=== PATIENT | female | born 1975 | race African-American/Black ===

== ENCOUNTER 2016-08-11 11:33 | Emergency (ER) | payer MEDICAID ==
[2016-08-11] MEDS ORDERED: Dicyclomine 10 MG Cap PO ONE (11:48)
--- NOTE | 2016-08-11 11:52 | EDM.PDOC ---
<Carmen Alvarado - Last Filed: 08/11/16 12:05> ED HPI GI/ABDOMINAL - General Chief Complaint: Gastrointestinal Problem Stated Complaint: UNK Time Seen by Provider: 08/11/16 11:35 - History of Present Illness INITIAL COMMENTS - FREE TEXT/NARRATIVE: History of present illness: [41-year-old female acute onset of diarrhea which started this morning with lightheadeness and dizziness. She has not noticed blood in her stools. She denies fever nausea vomiting abdominal pain, cough, sorethroat, earache, or other pertinent symptoms. Her son has similar symptoms She has a history of seizures that she takes Tegretol. A seizure was 9 years ago.] Review of systems: As per history of present illness and below otherwise all systems reviewed and negative. Past medical history: As per history of present illness and as reviewed below otherwise noncontributory. Surgical history: As per history of present illness and as reviewed below otherwise noncontributory. Social history: No reported history of drug or alcohol abuse. Family history: As per history of present illness and as reviewed below otherwise noncontributory. Physical exam: General: Well developed, well nourished in NAD HEENT: Atraumatic, normocephalic, pupils reactive, negative for conjunctival pallor or scleral icterus, mucous membranes moist, throat clear, neck supple, nontender, trachea midline. Lungs: Clear to auscultation, breath sounds equal bilaterally, chest nontender. Heart: S1S2, regular, negative for clicks, rubs, or JVD. Abdomen: Soft, nondistended, nontender. Hyperactive bowel sounds. Negative for masses or hepatosplenomegaly. Negative for costovertebral tenderness. Pelvis: Stable nontender. Genitourinary: Deferred. Rectal: Deferred. Extremities: Atraumatic, negative for cords or calf pain. Neurovascular unremarkable. Neuro: Awake, alert, oriented. Cranial nerves II through XII unremarkable. Cerebellum unremarkable. Motor and sensory unremarkable throughout. Exam nonfocal. Diagnostics: [CBC, CMP, UA, urine test] Therapeutics: [Bentyl by mouth x1] Impression: [Viral gastroenteritis] Plan: [Increase hydration] Definitive disposition and diagnosis as appropriate pending reevaluation and review of above. - Related Data Allergies/ADRs: Allergies Allergy/AdvReac Type Severity Reaction Status Date / Time No Known Allergies Allergy Verified 08/11/16 11:55 Home Meds: Home Meds carBAMazepine [Carbamazepine] 500 mg PO DAILY 08/11/16 [History] ED ROS GENERAL - Review of Systems Review Of Systems: See Below (History of present illness) ED EXAM, GI/ABD - Physical Exam Exam: See Below (History of present illness) Course - Vital Signs Last Recorded V/S: Last Vital Signs Temp 36.7 C 08/11/16 11:51 Pulse 95 08/11/16 11:51 Resp 18 08/11/16 11:51 BP 112/73 08/11/16 11:51 Pulse Ox 98 08/11/16 11:51 Orthostatic Blood Pressure [ 100/69 Standing] Orthostatic Blood Pressure [ 108/74 Sitting] Orthostatic Blood Pressure [ 117/70 Supine] - Orders/Labs/Meds Orders: Active Orders 24 hr Category Date Time Status Orthostatic Vital Signs [RC] ASDIRECTED Care 08/11/16 11:52 Active Labs: Laboratory Tests 08/11/16 08/11/16 08/11/16 Range/Units 11:20 11:20 12:25 WBC 6.19 (4.0-11.0) K/uL RBC 5.23 (4.30-5.90) M/uL Hgb 15.3 (12.0-16.0) g/dL Hct 46.0 (36.0-46.0) % MCV 88.0 (80.0-98.0) fL MCH 29.3 (27.0-32.0) pg MCHC 33.3 (31.0-37.0) g/dL RDW Std Deviation 41.0 (28.0-62.0) fl RDW Coeff of Keron 13 (11.0-15.0) % Plt Count 215 (150-400) K/uL MPV 10.80 (7.40-12.00) fL Neut % (Auto) 83.8 H (48.0-80.0) % Lymph % (Auto) 8.6 L (16.0-40.0) % [place] % (Auto) 7.3 (0.0-15.0) % Eos % (Auto) 0.3 (0.0-7.0) % Baso % (Auto) 0.0 (0.0-1.5) % Neut # 5.2 (1.4-5.7) K/uL Lymph # 0.5 L (0.6-2.4) K/uL [place] # 0.5 (0.0-0.8) K/uL Eos # 0.0 (0.0-0.7) K/uL Baso # 0.0 (0.0-0.1) K/uL Nucleated RBC % 0.0 /100WBC Nucleated RBCs # 0 K/uL Sodium 142 (136-146) mmol/L Potassium 3.5 (3.5-5.1) mmol/L Chloride 110 (98-110) mmol/L Carbon Dioxide 24 (21-31) mmol/L BUN 12 (6.0-23.0) mg/dL Creatinine 0.9 (0.6-1.5) mg/dL Est Cr Clr Drug Dosing 83.82 mL/min Estimated GFR (MDRD) > 60.0 ml/min Glucose 85 (60-110) mg/dL Calcium 10.1 (8.8-10.8) mg/dL Total Bilirubin 0.5 (0.1-1.5) mg/dL AST 21 (5-40) IU/L ALT 29 (8-54) IU/L Alkaline Phosphatase 63 (40-150) Total Protein 8.0 (6.0-8.0) g/dL Albumin 4.3 (3.5-5.0) g/dL Globulin 3.7 H (2.0-3.5) g/dL Albumin/Globulin Ratio 1.2 L (1.3-2.8) Urine Color Urine Appearance Urine pH (5.0-8.0) Ur Specific [place] (1.001-1.035) Urine Protein (NEGATIVE) mg/dL Urine Glucose (UA) (NEGATIVE) mg/dL Urine Ketones (NEGATIVE) mg/dL Urine Occult Blood (NEGATIVE) Urine Nitrite (NEGATIVE) Urine Bilirubin (NEGATIVE) Urine Urobilinogen (<2.0) EU/dL Ur Leukocyte Esterase (NEGATIVE) Urine RBC (0-2/HPF) Urine WBC (0-5/HPF) Ur Epithelial Cells (NONE-FEW) Urine Bacteria (NEGATIVE) Urine HCG, Qual NEGATIVE (NEGATIVE) 08/11/16 Range/Units 12:25 WBC (4.0-11.0) K/uL RBC (4.30-5.90) M/uL Hgb (12.0-16.0) g/dL Hct (36.0-46.0) % MCV (80.0-98.0) fL MCH (27.0-32.0) pg MCHC (31.0-37.0) g/dL RDW Std Deviation (28.0-62.0) fl RDW Coeff of Keron (11.0-15.0) % Plt Count (150-400) K/uL MPV (7.40-12.00) fL Neut % (Auto) (48.0-80.0) % Lymph % (Auto) (16.0-40.0) % [place] % (Auto) (0.0-15.0) % Eos % (Auto) (0.0-7.0) % Baso % (Auto) (0.0-1.5) % Neut # (1.4-5.7) K/uL Lymph # (0.6-2.4) K/uL [place] # (0.0-0.8) K/uL Eos # (0.0-0.7) K/uL Baso # (0.0-0.1) K/uL Nucleated RBC % /100WBC Nucleated RBCs # K/uL Sodium (136-146) mmol/L Potassium (3.5-5.1) mmol/L Chloride (98-110) mmol/L Carbon Dioxide (21-31) mmol/L BUN (6.0-23.0) mg/dL Creatinine (0.6-1.5) mg/dL Est Cr Clr Drug Dosing mL/min Estimated GFR (MDRD) ml/min Glucose (60-110) mg/dL Calcium (8.8-10.8) mg/dL Total Bilirubin (0.1-1.5) mg/dL AST (5-40) IU/L ALT (8-54) IU/L Alkaline Phosphatase (40-150) Total Protein (6.0-8.0) g/dL Albumin (3.5-5.0) g/dL Globulin (2.0-3.5) g/dL Albumin/Globulin Ratio (1.3-2.8) Urine Color DARK YELLOW Urine Appearance CLEAR Urine pH 5.5 (5.0-8.0) Ur Specific [place] >= 1.030 (1.001-1.035) Urine Protein NEGATIVE (NEGATIVE) mg/dL Urine Glucose (UA) NEGATIVE (NEGATIVE) mg/dL Urine Ketones TRACE H (NEGATIVE) mg/dL Urine Occult Blood NEGATIVE (NEGATIVE) Urine Nitrite NEGATIVE (NEGATIVE) Urine Bilirubin NEGATIVE (NEGATIVE) Urine Urobilinogen 0.2 (<2.0) EU/dL Ur Leukocyte Esterase NEGATIVE (NEGATIVE) Urine RBC NONE SEEN (0-2/HPF) Urine WBC 0-1 (0-5/HPF) Ur Epithelial Cells RARE (NONE-FEW) Urine Bacteria RARE (NEGATIVE) Urine HCG, Qual (NEGATIVE) Meds: Medications Discontinued Medications Generic Name Dose Route Start Last Admin Trade Name Freq PRN Reason Stop Dose Admin Dicyclomine HCl 10 mg 08/11/16 11:48 08/11/16 11:57 Bentyl PO 08/11/16 11:49 10 mg ONETIME ONE Administration Sodium Chloride 1,000 mls @ 999 mls/hr 08/11/16 12:04 08/11/16 12:23 Normal Saline IV 08/11/16 13:04 999 mls/hr STAT ONE Administration Departure - Departure Disposition: Home, Self-Care 01 Clinical Impression: Diarrhea Referrals: PCP,None [Primary Care Provider] - Forms: ED Department Discharge Additional Instructions: The following information is given to patients seen in the emergency department who are being discharged to home. This information is to outline your options for follow-up care. We provide all patients seen in our emergency department with a follow-up referral. The need for follow-up, as well as the timing and circumstances, are variable depending upon the specifics of your emergency department visit. If you don't have a primary care physician on staff, we will provide you with a referral. We always advise you to contact your personal physician following an emergency department visit to inform them of the circumstance of the visit and for follow-up with them and/or the need for any referrals to a consulting specialist. The emergency department will also refer you to a specialist when appropriate. This referral assures that you have the opportunity for follow-up care with a specialist. All of these measure are taken in an effort to provide you with optimal care, which includes your follow-up. Under all circumstances we always encourage you to contact your private physician who remains a resource for coordinating your care. When calling for follow-up care, please make the office aware that this follow-up is from your recent emergency room visit. If for any reason you are refused follow-up, please contact the [facility] Emergency Department at and asked to speak to the emergency department charge nurse. [facility] Primary care- Internal Medicine and Family [address] [address] Push hydration use [id number] antidiarrheals like Imodium or probiotics and please call and followup with your primary care physician. Return to ER as needed and as discussed <Aurea Whitaker - Last Filed: 08/11/16 13:42> ED HPI GI/ABDOMINAL - History of Present Illness INITIAL COMMENTS - FREE TEXT/NARRATIVE: This is Dr. Whitaker dictating an addendum note as a supervising physician on this case Agree with history and physical as above and the patient just started her symptoms this morning but says that she feels very lightheaded and feels generalized weakness. She has not had any vomiting. She is ambulatory in the ED without distress and her orthostatic vitals are negative but she felt symptomatic with them. With that being said we will go ahead and do CBC CMP UA and UCG and give her IV fluids. Patient is aware of all testing results and care plan for home with pushing hydration and [id number] antidiarrheals. Depression: Diarrhea Course - Orders/Labs/Meds Labs: Laboratory Tests 08/11/16 08/11/16 08/11/16 Range/Units 11:20 11:20 12:25 WBC 6.19 (4.0-11.0) K/uL RBC 5.23 (4.30-5.90) M/uL Hgb 15.3 (12.0-16.0) g/dL Hct 46.0 (36.0-46.0) % MCV 88.0 (80.0-98.0) fL MCH 29.3 (27.0-32.0) pg MCHC 33.3 (31.0-37.0) g/dL RDW Std Deviation 41.0 (28.0-62.0) fl RDW Coeff of Keron 13 (11.0-15.0) % Plt Count 215 (150-400) K/uL MPV 10.80 (7.40-12.00) fL Neut % (Auto) 83.8 H (48.0-80.0) % Lymph % (Auto) 8.6 L (16.0-40.0) % [place] % (Auto) 7.3 (0.0-15.0) % Eos % (Auto) 0.3 (0.0-7.0) % Baso % (Auto) 0.0 (0.0-1.5) % Neut # 5.2 (1.4-5.7) K/uL Lymph # 0.5 L (0.6-2.4) K/uL [place] # 0.5 (0.0-0.8) K/uL Eos # 0.0 (0.0-0.7) K/uL Baso # 0.0 (0.0-0.1) K/uL Nucleated RBC % 0.0 /100WBC Nucleated RBCs # 0 K/uL Sodium 142 (136-146) mmol/L Potassium 3.5 (3.5-5.1) mmol/L Chloride 110 (98-110) mmol/L Carbon Dioxide 24 (21-31) mmol/L BUN 12 (6.0-23.0) mg/dL Creatinine 0.9 (0.6-1.5) mg/dL Est Cr Clr Drug Dosing 83.82 mL/min Estimated GFR (MDRD) > 60.0 ml/min Glucose 85 (60-110) mg/dL Calcium 10.1 (8.8-10.8) mg/dL Total Bilirubin 0.5 (0.1-1.5) mg/dL AST 21 (5-40) IU/L ALT 29 (8-54) IU/L Alkaline Phosphatase 63 (40-150) Total Protein 8.0 (6.0-8.0) g/dL Albumin 4.3 (3.5-5.0) g/dL Globulin 3.7 H (2.0-3.5) g/dL Albumin/Globulin Ratio 1.2 L (1.3-2.8) Urine Color Urine Appearance Urine pH (5.0-8.0) Ur Specific [place] (1.001-1.035) Urine Protein (NEGATIVE) mg/dL Urine Glucose (UA) (NEGATIVE) mg/dL Urine Ketones (NEGATIVE) mg/dL Urine Occult Blood (NEGATIVE) Urine Nitrite (NEGATIVE) Urine Bilirubin (NEGATIVE) Urine Urobilinogen (<2.0) EU/dL Ur Leukocyte Esterase (NEGATIVE) Urine RBC (0-2/HPF) Urine WBC (0-5/HPF) Ur Epithelial Cells (NONE-FEW) Urine Bacteria (NEGATIVE) Urine HCG, Qual NEGATIVE (NEGATIVE) 08/11/16 Range/Units 12:25 WBC (4.0-11.0) K/uL RBC (4.30-5.90) M/uL Hgb (12.0-16.0) g/dL Hct (36.0-46.0) % MCV (80.0-98.0) fL MCH (27.0-32.0) pg MCHC (31.0-37.0) g/dL RDW Std Deviation (28.0-62.0) fl RDW Coeff of Keron (11.0-15.0) % Plt Count (150-400) K/uL MPV (7.40-12.00) fL Neut % (Auto) (48.0-80.0) % Lymph % (Auto) (16.0-40.0) % [place] % (Auto) (0.0-15.0) % Eos % (Auto) (0.0-7.0) % Baso % (Auto) (0.0-1.5) % Neut # (1.4-5.7) K/uL Lymph # (0.6-2.4) K/uL [place] # (0.0-0.8) K/uL Eos # (0.0-0.7) K/uL Baso # (0.0-0.1) K/uL Nucleated RBC % /100WBC Nucleated RBCs # K/uL Sodium (136-146) mmol/L Potassium (3.5-5.1) mmol/L Chloride (98-110) mmol/L Carbon Dioxide (21-31) mmol/L BUN (6.0-23.0) mg/dL Creatinine (0.6-1.5) mg/dL Est Cr Clr Drug Dosing mL/min Estimated GFR (MDRD) ml/min Glucose (60-110) mg/dL Calcium (8.8-10.8) mg/dL Total Bilirubin (0.1-1.5) mg/dL AST (5-40) IU/L ALT (8-54) IU/L Alkaline Phosphatase (40-150) Total Protein (6.0-8.0) g/dL Albumin (3.5-5.0) g/dL Globulin (2.0-3.5) g/dL Albumin/Globulin Ratio (1.3-2.8) Urine Color DARK YELLOW Urine Appearance CLEAR Urine pH 5.5 (5.0-8.0) Ur Specific [place] >= 1.030 (1.001-1.035) Urine Protein NEGATIVE (NEGATIVE) mg/dL Urine Glucose (UA) NEGATIVE (NEGATIVE) mg/dL Urine Ketones TRACE H (NEGATIVE) mg/dL Urine Occult Blood NEGATIVE (NEGATIVE) Urine Nitrite NEGATIVE (NEGATIVE) Urine Bilirubin NEGATIVE (NEGATIVE) Urine Urobilinogen 0.2 (<2.0) EU/dL Ur Leukocyte Esterase NEGATIVE (NEGATIVE) Urine RBC NONE SEEN (0-2/HPF) Urine WBC 0-1 (0-5/HPF) Ur Epithelial Cells RARE (NONE-FEW) Urine Bacteria RARE (NEGATIVE) Urine HCG, Qual (NEGATIVE) Departure - Departure Time of Disposition: 13:41 Condition: good
[2016-08-11] MEDS ORDERED: Sodium Chloride 0.9% 1,000 ML IV ONE (12:04)
[2016-08-11 13:12] LABS: CHLORIDE,CL 110 mmol/L (98-110); SODIUM,NA 142 mmol/L (136-146)
[2016-08-11 14:29] VITALS: BP 108/72
== END 2016-08-11 14:20 | disposition home or self-care (01) ==
LOC: MW.ED 11:33
DX: A08.4 Viral intestinal infection, unspecified (principal); R19.7 Diarrhea, unspecified
CPT/HCPCS: 36415; 80053; 81001; 81025; 85025; 96360; 99284; A9270; J7040; 99283

== ENCOUNTER 2016-12-03 09:22 | Emergency (ER) | payer MEDICAID ==
--- NOTE | 2016-12-03 09:57 | EDM.PDOC ---
ED HPI GENERAL MEDICAL PROBLEM - General Chief Complaint: Lower Extremity Injury/Pain Stated Complaint: NUMB FEELING IN LEFT FOOT AND TOES Time Seen by Provider: 12/03/16 09:42 - History of Present Illness INITIAL COMMENTS - FREE TEXT/NARRATIVE: HISTORY AND PHYSICAL: History of present illness: The patient is a 41-year-old female who follows at [facility] and presents with a two-week history of numbness to the forefront of her left foot and toes with feelings of discomfort. The patient denies any trauma to the area and says that she feels that from the ball of the foot circumferentially around her foot and toes she feels numbness but it is more intense in her big toe and second toe. She does not have any swelling temperature changes redness or lesions noted. She says it is uncomfortable and tingling and pinprick-like sensation. She denies any back pain bowel or bladder disturbances and has no radiation of the discomfort upper leg nor does anything originate from her back and go down her leg. The patient denies any systemic complaints such as chest pain fever chills nausea vomiting lightheadedness and has no history of diabetes or family history of diabetes. When asked why she did not see her clinic provider at the symptoms have been going on for 2 weeks she told me that she didn't call because every time she tries to make an appointment it takes 2 or 3 weeks to get an appointment. Review of systems: As per history of present illness and below otherwise all systems reviewed and negative. Past medical history: As per history of present illness and as reviewed below otherwise noncontributory. Surgical history: As per history of present illness and as reviewed below otherwise noncontributory. Social history: No reported history of drug or alcohol abuse. Family history: As per history of present illness and as reviewed below otherwise noncontributory. Physical exam: Gen.: Well-developed well-nourished female who vital signs have been noted by me and is nontoxic speaking clearly and easily HEENT: Atraumatic, normocephalic, pupils reactive, negative for conjunctival pallor or scleral icterus, mucous membranes moist, throat clear, neck supple, nontender, trachea midline. Lungs: Clear to auscultation, breath sounds equal bilaterally, chest nontender. Heart: S1S2, regular rate and rhythm no overt murmurs Abdomen: Soft, nondistended, nontender. NABS Pelvis: Stable nontender. Genitourinary: Deferred. Rectal: Deferred. Extremities: Atraumatic, negative for cords or calf pain. Neurovascular unremarkable. No pedal edema or leg asymmetry. At the left foot there is no evidence of any warmth redness swelling appreciated and there is no discrete lesions defects deformities or tenderness noted in the toes or the forefront of the foot. There is no temperature changes and pulses are strong Neuro: Awake, alert, oriented. Cranial nerves II through XII unremarkable. Cerebellum unremarkable. Motor and sensory unremarkable throughout. Exam nonfocal. Diagnostics: Accu-Chek Therapeutics: [] I discussed with the patient that my ability to work up this neurosensory change is very limited in the ED as it does not follow any dermatome and due to the chronic nature of the problem. Her pulses are strong there is no clinical evidence of any trauma or infection and I will check an Accu-Chek and refer her back to her provider in the clinic for outpatient testing is indicated. The patient again denies to me any back pain numbness or tingling originating from her back down her leg and states that the problem is only in her toes and her forefoot. Impression: Paresthesia of left toes subacute etiology unclear Definitive disposition and diagnosis as appropriate pending reevaluation and review of above. left toe Pain Score (Numeric/FACES): 4 - Related Data Allergies Allergy/AdvReac Type Severity Reaction Status Date / Time No Known Allergies Allergy Verified 12/03/16 09:37 Home Meds: Home Meds carBAMazepine [Carbamazepine] 500 mg PO DAILY 08/11/16 [History] Past Medical History - Past Health History Medical/Surgical History: Denies Medical/Surgical History Neurological History: Reports: Seizure - Infectious Disease History Infectious Disease History: Reports: Chicken Pox Social & Family History - Family History Family Medical History: Noncontributory - Tobacco Use Smoking Status *Q: Never Smoker - Recreational Drug Use Recreational Drug Use: No Review of Systems - Review of Systems Review Of Systems: ROS reveals no pertinent complaints other than HPI. ED EXAM, GENERAL - Physical Exam Exam: See Below (See dictation) Course - Vital Signs Last Recorded V/S: Last Vital Signs Temp 36.8 C 12/03/16 09:37 Pulse 83 12/03/16 09:37 Resp 18 12/03/16 09:37 BP 109/65 12/03/16 09:37 Pulse Ox 96 12/03/16 09:37 - Orders/Labs/Meds Orders: Active Orders 24 hr Category Date Time Status Blood Glucose Check, Bedside [RC] ONETIME Care 12/03/16 09:51 Ordered Departure - Departure Time of Disposition: 09:55 Disposition: Home, Self-Care 01 Condition: Good Clinical Impression: Paresthesia of left foot - Discharge Information Forms: ED Department Discharge Additional Instructions: The following information is given to patients seen in the emergency department who are being discharged to home. This information is to outline your options for follow-up care. We provide all patients seen in our emergency department with a follow-up referral. The need for follow-up, as well as the timing and circumstances, are variable depending upon the specifics of your emergency department visit. If you don't have a primary care physician on staff, we will provide you with a referral. We always advise you to contact your personal physician following an emergency department visit to inform them of the circumstance of the visit and for follow-up with them and/or the need for any referrals to a consulting specialist. The emergency department will also refer you to a specialist when appropriate. This referral assures that you have the opportunity for followup care with a specialist. All of these measure are taken in an effort to provide you with optimal care, which includes your followup. Under all circumstances we always encourage you to contact your private physician who remains a resource for coordinating your care. When calling for followup care, please make the office aware that this follow-up is from your recent emergency room visit. If for any reason you are refused follow-up, please contact the [facility] emergency department at and ask to speak to the emergency department charge nurse. [address] [place] [address] Please elevate feet at all times possible and follow-up with your provider at [facility] or one of her associates for further outpatient testing and care. Return to ER as needed and as discussed You have a scheduled appointment at [facility] on Wednesday at 2:15 PM with Adrienne Finnegan. Please keep that appointment. - My Orders Last 24 Hours: My Active Orders 12/03/16 09:51 Blood Glucose Check, Bedside [RC] ONETIME - Assessment/Plan Last 24 Hours: My Active Orders 12/03/16 09:51 Blood Glucose Check, Bedside [RC] ONETIME
[2016-12-03 10:18] VITALS: BP 112/69
== END 2016-12-03 10:14 | disposition home or self-care (01) ==
LOC: MW.ED 09:22
DX: R20.8 Other disturbances of skin sensation (principal); Z79.899 Other long term (current) drug therapy
CPT/HCPCS: 82962; 99282; 99283

== ENCOUNTER 2017-02-21 11:49 | Emergency (ER) | payer MEDICAID ==
--- NOTE | 2017-02-21 12:16 | EDM.PDOC ---
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 The patient states that her last regular period was January 17 and she does have irregular periods so she is not sure and she did 2 home tests one of which was positive and one of which was negative. 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 The patient states that she had some scant spotting 2 days ago and has not had any bleeding since that time and she has not had nausea or vomiting or upper abdominal pain. She has had no other systemic complaints but has had some breast tenderness. She states she is concerned about a and is unsure due to the equivocality of the tests. She has had no gynecologic surgeries. She has no dysuria no frequency and no flank pain. She's been eating and drinking normally Review of systems: As per history of present illness and below otherwise all systems reviewed and negative. Past medical history: As per history of present illness and as reviewed below otherwise noncontributory. Surgical history: As per history of present illness and as reviewed below otherwise noncontributory. Social history: No reported history of drug or alcohol abuse. Family history: As per history of present illness and as reviewed below otherwise noncontributory. Physical exam: Gen.: Well-developed well-nourished female who is nontoxic and moves easily in the ED without distress. HEENT: Atraumatic, normocephalic, negative for conjunctival pallor or scleral icterus, mucous membranes moist, throat clear, neck supple, nontender, trachea midline. Lungs: Clear to auscultation, breath sounds equal bilaterally, chest nontender. Heart: S1S2, regular rate and rhythm no overt murmurs Abdomen: Soft, nondistended, minimal suprapubic tenderness without rebound or guarding, no localization of the tenderness right or left, normoactive bowel sounds. Negative for masses or hepatosplenomegaly. Negative for costovertebral tenderness. Pelvis: Stable nontender. Genitourinary: Deferred. Rectal: Deferred. Extremities: Atraumatic, negative for cords or calf pain. Neurovascular unremarkable. Neuro: Awake, alert, oriented. Cranial nerves II through XII unremarkable. Cerebellum unremarkable. Motor and sensory unremarkable throughout. Exam nonfocal. Diagnostics: CBC CMP serum quantitative hCG UA, urine culture if indicated, ABO Rh, pelvic ultrasound if indicated with a positive hCG Therapeutics: I discussed with the patient the testing results including the quantitative hCG of 414 and the ultrasound indicating a small sac indicating a very early gestation. I have advised close follow-up with a repeat hormone level in 2 days and follow-up in our clinic with Dr. Fajardo one of the providers there. I've advised her on strict pelvic rest and reasons to return to the ED. Impression: Threatened Definitive disposition and diagnosis as appropriate pending reevaluation and review of above. Pelvic Pain Score (Numeric/FACES): 4 - Related Data Allergies Allergy/AdvReac Type Severity Reaction Status Date / Time No Known Allergies Allergy Verified 02/21/17 12:07 Home Meds: Home Meds carBAMazepine [Carbamazepine] 500 mg PO DAILY 08/11/16 [History] Past Medical History - Past Health History Medical/Surgical History: Denies Medical/Surgical History Neurological History: Reports: Seizure - Infectious Disease History Infectious Disease History: Reports: Chicken Pox Social & Family History - Family History Family Medical History: Noncontributory - Tobacco Use Smoking Status *Q: Never Smoker - Recreational Drug Use Recreational Drug Use: No ED ROS GENERAL - Review of Systems Review Of Systems: ROS reveals no pertinent complaints other than HPI. ED EXAM, GENERAL - Physical Exam Exam: See Below (See dictation) Course - Vital Signs Last Recorded V/S: Last Vital Signs Temp 36.6 C 02/21/17 14:07 Pulse 65 02/21/17 14:07 Resp 18 02/21/17 14:07 BP 101/66 02/21/17 14:07 Pulse Ox 97 02/21/17 14:07 - Orders/Labs/Meds Orders: Active Orders 24 hr Category Date Time Status OB 1st Tri Sgl 1st Gest [US] Stat Exams 02/21/17 13:03 Taken Labs: Laboratory Tests 02/21/17 02/21/17 02/21/17 Range/Units 12:17 12:17 12:17 WBC 5.30 (4.0-11.0) K/uL RBC 4.71 (4.30-5.90) M/uL Hgb 14.4 (12.0-16.0) g/dL Hct 41.9 (36.0-46.0) % MCV 89.0 (80.0-98.0) fL MCH 30.6 (27.0-32.0) pg MCHC 34.4 (31.0-37.0) g/dL RDW Std Deviation 41.5 (28.0-62.0) fl RDW Coeff of Keron 13 (11.0-15.0) % Plt Count 200 (150-400) K/uL MPV 10.80 (7.40-12.00) fL Neut % (Auto) 66.1 (48.0-80.0) % Lymph % (Auto) 24.2 (16.0-40.0) % [place] % (Auto) 9.1 (0.0-15.0) % Eos % (Auto) 0.4 (0.0-7.0) % Baso % (Auto) 0.2 (0.0-1.5) % Neut # (Auto) 3.5 (1.4-5.7) K/uL Lymph # (Auto) 1.3 (0.6-2.4) K/uL [place] # (Auto) 0.5 (0.0-0.8) K/uL Eos # (Auto) 0.0 (0.0-0.7) K/uL Baso # (Auto) 0.0 (0.0-0.1) K/uL Nucleated RBC % 0.0 /100WBC Nucleated RBCs # 0 K/uL Sodium 142 (136-146) mmol/L Potassium 3.4 L (3.5-5.1) mmol/L Chloride 111 H (98-110) mmol/L Carbon Dioxide 24 (21-31) mmol/L BUN 11 (6.0-23.0) mg/dL Creatinine 0.9 (0.6-1.5) mg/dL Est Cr Clr Drug Dosing 83.82 mL/min Estimated GFR (MDRD) > 60.0 ml/min Glucose 95 (60-110) mg/dL Calcium 9.9 (8.8-10.8) mg/dL Total Bilirubin 0.4 (0.1-1.5) mg/dL AST 13 (5-40) IU/L ALT 16 (8-54) IU/L Alkaline Phosphatase 67 (40-150) Total Protein 7.2 (6.0-8.0) g/dL Albumin 3.9 (3.5-5.0) g/dL Globulin 3.3 (2.0-3.5) g/dL Albumin/Globulin Ratio 1.2 L (1.3-2.8) HCG, Quant 414.8 mIU/mL Urine Color Urine Appearance Urine pH (5.0-8.0) Ur Specific [place] (1.001-1.035) Urine Protein (NEGATIVE) mg/dL Urine Glucose (UA) (NEGATIVE) mg/dL Urine Ketones (NEGATIVE) mg/dL Urine Occult Blood (NEGATIVE) Urine Nitrite (NEGATIVE) Urine Bilirubin (NEGATIVE) Urine Urobilinogen (<2.0) EU/dL Ur Leukocyte Esterase (NEGATIVE) Urine RBC (0-2/HPF) Urine WBC (0-5/HPF) Ur Epithelial Cells (NONE-FEW) Amorphous Sediment (NEGATIVE) Urine Bacteria (NEGATIVE) Blood Type 02/21/17 02/21/17 Range/Units 12:17 12:20 WBC (4.0-11.0) K/uL RBC (4.30-5.90) M/uL Hgb (12.0-16.0) g/dL Hct (36.0-46.0) % MCV (80.0-98.0) fL MCH (27.0-32.0) pg MCHC (31.0-37.0) g/dL RDW Std Deviation (28.0-62.0) fl RDW Coeff of Keron (11.0-15.0) % Plt Count (150-400) K/uL MPV (7.40-12.00) fL Neut % (Auto) (48.0-80.0) % Lymph % (Auto) (16.0-40.0) % [place] % (Auto) (0.0-15.0) % Eos % (Auto) (0.0-7.0) % Baso % (Auto) (0.0-1.5) % Neut # (Auto) (1.4-5.7) K/uL Lymph # (Auto) (0.6-2.4) K/uL [place] # (Auto) (0.0-0.8) K/uL Eos # (Auto) (0.0-0.7) K/uL Baso # (Auto) (0.0-0.1) K/uL Nucleated RBC % /100WBC Nucleated RBCs # K/uL Sodium (136-146) mmol/L Potassium (3.5-5.1) mmol/L Chloride (98-110) mmol/L Carbon Dioxide (21-31) mmol/L BUN (6.0-23.0) mg/dL Creatinine (0.6-1.5) mg/dL Est Cr Clr Drug Dosing mL/min Estimated GFR (MDRD) ml/min Glucose (60-110) mg/dL Calcium (8.8-10.8) mg/dL Total Bilirubin (0.1-1.5) mg/dL AST (5-40) IU/L ALT (8-54) IU/L Alkaline Phosphatase (40-150) Total Protein (6.0-8.0) g/dL Albumin (3.5-5.0) g/dL Globulin (2.0-3.5) g/dL Albumin/Globulin Ratio (1.3-2.8) HCG, Quant mIU/mL Urine Color YELLOW Urine Appearance CLEAR Urine pH 6.0 (5.0-8.0) Ur Specific [place] 1.025 (1.001-1.035) Urine Protein NEGATIVE (NEGATIVE) mg/dL Urine Glucose (UA) NEGATIVE (NEGATIVE) mg/dL Urine Ketones TRACE H (NEGATIVE) mg/dL Urine Occult Blood NEGATIVE (NEGATIVE) Urine Nitrite NEGATIVE (NEGATIVE) Urine Bilirubin NEGATIVE (NEGATIVE) Urine Urobilinogen 0.2 (<2.0) EU/dL Ur Leukocyte Esterase NEGATIVE (NEGATIVE) Urine RBC NONE SEEN (0-2/HPF) Urine WBC 0-1 (0-5/HPF) Ur Epithelial Cells RARE (NONE-FEW) Amorphous Sediment FEW (NEGATIVE) Urine Bacteria RARE (NEGATIVE) Blood Type O POSITIVE Departure - Departure Time of Disposition: 14:16 Disposition: Home, Self-Care 01 Condition: Good Clinical Impression: Threatened - Discharge Information Referrals: PCP,None [Primary Care Provider] - Forms: ED Department Discharge Additional Instructions: The following information is given to patients seen in the emergency department who are being discharged to home. This information is to outline your options for follow-up care. We provide all patients seen in our emergency department with a follow-up referral. The need for follow-up, as well as the timing and circumstances, are variable depending upon the specifics of your emergency department visit. If you don't have a primary care physician on staff, we will provide you with a referral. We always advise you to contact your personal physician following an emergency department visit to inform them of the circumstance of the visit and for follow-up with them and/or the need for any referrals to a consulting specialist. The emergency department will also refer you to a specialist when appropriate. This referral assures that you have the opportunity for followup care with a specialist. All of these measure are taken in an effort to provide you with optimal care, which includes your followup. Under all circumstances we always encourage you to contact your private physician who remains a resource for coordinating your care. When calling for followup care, please make the office aware that this follow-up is from your recent emergency room visit. If for any reason you are refused follow-up, please contact the [facility] emergency department at and ask to speak to the emergency department charge nurse. [facility] [address] [place], [place] [id number] [address] Please contact our clinic to be seen in the next few days and go to outpatient lab in 2 days to have her repeat hormone level drawn to document the progression of this . Push hydration and rest as much as possible. Strict pelvic rest until you're followed up in the clinic and nothing in the vagina until you're followed up in the clinic. Please return to ER as needed and as discussed - My Orders Last 24 Hours: My Active Orders 02/21/17 13:03 OB 1st Tri Sgl 1st Gest [US] Stat - Assessment/Plan Last 24 Hours: My Active Orders 02/21/17 13:03 OB 1st Tri Sgl 1st Gest [US] Stat
[2017-02-21 12:47] LABS: CHLORIDE,CL 111 mmol/L (98-110); SODIUM,NA 142 mmol/L (136-146)
[2017-02-21 14:37] VITALS: BP 105/65
--- NOTE | 2017-02-22 14:42 | US ---
EXAM DATE: 02/21/17 PATIENT'S AGE: 41 Patient: ISAURO CAMPBELL Facility: [place], [place] Site . Site : [id number] Study: US OB Pelvis [id number] 1:45:53 PM Ordering Physician: Sherman Villar Final Report: INDICATION: Pelvic pain and vaginal spotting. Beta HCG level is 414. TECHNIQUE: Ultrasound OB pelvis transvaginal. Real-time hartmann-scale imaging of the pelvis was performed. COMPARISON: None FINDINGS: There is a small endometrial sac measuring 0.3 cm which would correspond to a 4 week 5 day gestational age and an estimated date of delivery October 26, 2017. No sign of yolk sac or fetus. There are 3 distinct small uterine fibroids. The ovaries and adnexa are normal. IMPRESSION: There is a small endometrial sac which would be consistent with an early intrauterine . Estimated ultrasound age is 4 weeks 5 days by gestational sac size. It is too early to determine viability. 3 small uterine fibroids are present. Remainder of the exam is unremarkable. Dictated by Yair Bryant MD @ 02/21/2017 2:02:13 PM Dictated by: Yair Bryant MD @ 02/21/2017 14:02:36 (Electronic Signature) Report Signed by Proxy. LESLI
== END 2017-02-21 14:30 | disposition home or self-care (01) ==
LOC: MW.ED 11:49
DX: O20.0 Threatened abortion (principal)
CPT/HCPCS: 36415; 76801; 76801-26; 80053; 81001; 84702; 85025; 86900; 86901; 99282; 99284-25

== ENCOUNTER 2017-10-08 11:02 | Inpatient (IN) | payer MEDICAID ==
[2017-10-08] MEDS ORDERED: Tranexamic Acid 1,000 MG in Sodium Chloride 0.9% 100 ML IV PRN (11:40)
[2017-10-08] MEDS ORDERED: Sodium Chloride 0.9% 10 ML Syringe FLUSH PRN (11:40)
[2017-10-08] MEDS ORDERED: Sodium Chloride 0.9% 2.5 ML Syringe FLUSH PRN (11:40)
[2017-10-08] MEDS ORDERED: Carboprost Tromethamine 250 MCG/1 ML Amp IM PRN (11:40)
[2017-10-08] MEDS ORDERED: Lidocaine 1% 50 ML MDV INJECT PRN (11:40)
[2017-10-08] MEDS ORDERED: Ampicillin 2 GM in Sodium Chloride 0.9% 100 ML IV ONE (11:40)
[2017-10-08] MEDS ORDERED: Misoprostol 200 MCG Tab PO PRN (11:40)
[2017-10-08] MEDS ORDERED: Water For Irrigation,Sterile 1,000 ML Container IRR PRN (11:40)
[2017-10-08] MEDS ORDERED: Methylergonovine 0.2 MG/1 ML Amp IM PRN (11:40)
[2017-10-08] MEDS ORDERED: Nalbuphine 10 MG/ML 10 ML MDV IVPUSH PRN (11:40)
[2017-10-08] MEDS ORDERED: Oxytocin/0.9 % Sodium Chloride 30 UNIT/500 ML BAG IV SCH ×2 (11:45→21:45)
[2017-10-08] MEDS: Lactated Ringers 1,000 ML IV SCH ×2 (12:13→23:48)
--- NOTE | 2017-10-08 12:46 | PCM.LDHP ---
L&D History of Present Illness - General Date of Service: 10/08/17 Admit Problem/Dx: Patient Status Order with Admit Dx/Problem 10/08/17 11:40 Patient Status [ADT] Routine Admission Diagnosis/Problem Admission Diagnosis/Problem 10/08/17 12:42 42yo EDC 10/27/2017 37 2/7wks. O+, RI, GBS unknown. SROM clear. 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: x3 Neurological History: Reports: Seizure - Infectious Disease History Infectious Disease History: Reports: Chicken Pox - Past Surgical History Other Neurological Surgeries/Procedures: hx seizures, controlled with medications Social & Family History - Family History Family Medical History: Noncontributory - Caffeine Use Caffeine Use: Reports: Coffee, Soda H&P Review of Systems - Review of Systems: Review Of Systems: See Below General: Reports: No Symptoms HEENT: Reports: No Symptoms Pulmonary: Reports: No Symptoms Cardiovascular: Reports: No Symptoms Gastrointestinal: Reports: No Symptoms Genitourinary: Reports: Other (SROM clear fluid) Musculoskeletal: Reports: No Symptoms Skin: Reports: No Symptoms Psychiatric: Reports: No Symptoms Neurological: Reports: No Symptoms Hematologic/Lymphatic: Reports: No Symptoms Immunologic: Reports: No Symptoms L&D Exam - Exam Exam: See Below - Vital Signs Weight: 90.718 kg - Anderson Score Anderson Score Cervix Position: Posterior Anderson Score Consistency: Medium Anderson Score Effacement: >80% Anderson Score Dilation: 3-4 cm Anderson Score 's Station: -2 Anderson Score Total: 7 - Exam General: Alert, Oriented, Cooperative HEENT: Hearing Intact Lungs: Clear to Auscultation, Normal Respiratory Effort Cardiovascular: Regular Rate, Regular Rhythm, Normal S1, Normal S2 GI/Abdominal Exam: Normal Bowel Sounds, Soft, Non-Tender, No Organomegaly, No Distention, No Abnormal Bruit, No Mass, Pelvis Stable Rectal Exam: Normal Exam, Deferred Genitourinary: Normal external exam, Normal bimanual exam, Cervical fluid Back Exam: Normal Inspection, Full Range of Motion Extremities: Normal Inspection, Normal Range of Motion, Non-Tender, No Pedal Edema, Normal Capillary Refill Skin: Warm, Dry, Intact Neurological: Cranial Nerves Intact, Reflexes Equal Bilateral, Strength Equal Bilateral, Normal Gait, Normal Speech, Normal Tone Psychiatric: Alert, Normal Affect, Normal Mood - Patient Data Lab Results Last 24 hrs: Laboratory Results - last 24 hr 10/08/17 Range/Units 11:54 WBC 6.49 (4.0-11.0) K/uL RBC 4.26 L (4.30-5.90) M/uL Hgb 12.3 (12.0-16.0) g/dL Hct 37.2 (36.0-46.0) % MCV 87.3 (80.0-98.0) fL MCH 28.9 (27.0-32.0) pg MCHC 33.1 (31.0-37.0) g/dL RDW Std Deviation 47.0 (28.0-62.0) fl RDW Coeff of Keron 15 (11.0-15.0) % Plt Count 144 L (150-400) K/uL MPV 11.20 (7.40-12.00) fL Nucleated RBC % 0.0 /100WBC Nucleated RBCs # 0 K/uL Result Diagrams: 10/08/17 11:54 - Problem List (1) Supervision of normal IUP (intrauterine ) in multigravida SNOMED Code(s): 367542922, 116238613, 566584442 ICD Code: Z34.80 - ENCOUNTER FOR SUPRVSN OF NORMAL , UNSP TRIMESTER Status: Acute Priority: High Current Visit: Yes Qualifiers: Trimester: third trimester Qualified Code(s): Z34.83 - Encounter for supervision of other normal , third trimester (2) AMA (advanced maternal age) multigravida 35+ SNOMED Code(s): 764201895 ICD Code: O09.529 - SUPERVISION OF ELDERLY MULTIGRAVIDA, UNSPECIFIED TRIMESTER Status: Acute Priority: High Current Visit: Yes Qualifiers: Trimester: third trimester Qualified Code(s): O09.523 - Supervision of elderly multigravida, third trimester Problem List Initiated/Reviewed/Updated: Yes Orders Last 24hrs: Active Orders 24 hr Category Date Time Status Patient Status [ADT] Routine ADT 10/08/17 11:40 Active Heart Tones [RC] CONTINUOUS Care 10/08/17 11:40 Active May Shower [RC] ASDIRECTED Care 10/08/17 11:40 Active Notify Provider [RC] PRN Care 10/08/17 11:40 Active Up ad Minerva [RC] ASDIRECTED Care 10/08/17 11:40 Active Vital Signs [RC] PER UNIT ROUTINE Care 10/08/17 11:40 Active Clear Liquid Diet [DIET] Diet 10/08/17 Dinner Active TYPE AND SCREEN [BBK] Routine Lab 10/08/17 11:54 Received Carboprost Tromethamine [Hemabate DS] Med 10/08/17 11:40 Active 250 mcg IM ASDIRECTED PRN Lactated Ringers [Ringers, Lactated] 1,000 ml Med 10/08/17 11:45 Active IV ASDIRECTED Lidocaine 1% [Xylocaine 1%] Med 10/08/17 11:40 Active 50 ml INJECT .ONCE PRN Methylergonovine [Methergine] Med 10/08/17 11:40 Active 0.2 mg IM ASDIRECTED PRN Misoprostol [Cytotec] Med 10/08/17 11:40 Active 200 mcg PO .ONCE PRN Nalbuphine [Nubain] Med 10/08/17 11:40 Active 10 mg IVPUSH Q1H PRN Oxytocin/0.9 % Sodium Chloride [Oxytocin 30 Unit/500 ML Med 10/08/17 11:45 Active -NS] 30 unit in 500 ml IV TITRATE Sodium Chloride 0.9% [Saline Flush] Med 10/08/17 11:40 Active 10 ml FLUSH ASDIRECTED PRN Sodium Chloride 0.9% [Saline Flush] Med 10/08/17 11:40 Active 2.5 ml FLUSH ASDIRECTED PRN Tranexamic Acid [Cyklokapron] 1,000 mg Med 10/08/17 11:40 Active Sodium Chloride 0.9% [Normal Saline] 100 ml IV ONETIME Water For Irrigation,Sterile [Sterile Water for Med 10/08/17 11:40 Active Irrigation] 1,000 ml IRR ASDIRECTED PRN Scalp Electrode [WOMSER] Per Unit Routine Oth 10/08/17 11:40 Ordered Peripheral IV Insertion Adult [OM.PC] Routine Oth 10/08/17 11:40 Ordered Resuscitation Status Routine Resus Stat 10/08/17 11:40 Ordered Medication Orders Carboprost Tromethamine (Hemabate Ds) 250 mcg IM ASDIRECTED PRN PRN Reason: Post Hemorrhage Lactated Ringer's (Ringers, Lactated) 1,000 mls @ 150 mls/hr IV ASDIRECTED NANCY Last Admin: 10/08/17 12:13 Dose: 150 mls/hr Oxytocin/Sodium Chloride (Oxytocin 30 Unit/500 Ml-Ns) 30 unit in 500 mls @ 999 mls/hr IV TITRATE NANCY Tranexamic Acid 1,000 mg/ (Sodium Chloride) 110 mls @ 660 mls/hr IV ONETIME PRN PRN Reason: Bleeding Lidocaine HCl (Xylocaine 1%) 50 ml INJECT .ONCE PRN PRN Reason: Laceration repair Methylergonovine Maleate (Methergine) 0.2 mg IM ASDIRECTED PRN PRN Reason: Post Hemorrhage Misoprostol (Cytotec) 200 mcg PO .ONCE PRN PRN Reason: Post Hemorrhage Nalbuphine HCl (Nubain) 10 mg IVPUSH Q1H PRN PRN Reason: Pain (severe 7-10) Sodium Chloride (Saline Flush) 10 ml FLUSH ASDIRECTED PRN PRN Reason: Keep Vein Open Sodium Chloride (Saline Flush) 2.5 ml FLUSH ASDIRECTED PRN PRN Reason: Keep Vein Open Sterile Water (Sterile Water For Irrigation) 1,000 ml IRR ASDIRECTED PRN PRN Reason: delivery Assessment/Plan Comment:: Admit A: 42yo EDC 10/27/2017 37 2/7wks. O+, RI, GBS unknown. SROM clear. P: admit, pitocin prn, Amp for GBS unknown, anticipate . Dr Fajardo updated.
[2017-10-08] MEDS: Ampicillin 1 GM in Sodium Chloride 0.9% 50 ML IV SCH ×2 (16:11→21:30)
[2017-10-08] MEDS ORDERED: Misoprostol 25 MCG (1/4 of 100 MCG) Tab PO ONE (16:37)
[2017-10-08] MEDS ORDERED: Misoprostol 25 MCG (1/4 of 100 MCG) Tab VAG ONE (16:40)
[2017-10-08] MEDS: CARBAMAZEPINE 100 MG PO SCH ×2 (17:56)
[2017-10-08] MEDS ORDERED: CARBAMAZEPINE 100 MG PO SCH (18:00)
[2017-10-09] MEDS ORDERED: fentaNYL 100 MCG/2 ML SDV ONE ×2 (00:15→23:44)
[2017-10-09] MEDS: Lactated Ringers 1,000 ML IV SCH (00:45)
--- NOTE | 2017-10-09 01:19 | PCM.PREANE ---
Preanesthetic Assessment - Procedure Proposed Procedure: Labor epidural and dosing - Anesthesia/Transfusion/Family Hx Anesthesia History: Prior Anesthesia Without Reaction Family History of Anesthesia Reaction: No Intubation History: Unknown - Review of Systems General: Other (Labor) Pulmonary: No Symptoms Cardiovascular: No Symptoms Gastrointestinal: Other (GERD) Neurological: Seizure (Hx without recent occurrence; intermittent meds taken) Other: Reports: None - Physical Assessment NPO Status Date: 10/08/17 NPO Status Time: 12:00 Height: 5 ft 9 in Weight: 200 lb ASA Class: 2 Mental Status: Alert & Oriented x3 Airway Class: Mallampati = 1 Dentition: Reports: Normal Dentition Thyro-Mental Finger Breadths: 3 Mouth Opening Finger Breadths: 3 ROM/Head Extension: Full Lungs: Clear to Auscultation, Normal Respiratory Effort Cardiovascular: Regular Rate, Regular Rhythm, No Murmurs - Lab Values: Laboratory Last Values WBC 6.49 K/uL (4.0-11.0) 10/08/17 11:54 RBC 4.26 M/uL (4.30-5.90) L 10/08/17 11:54 Hgb 12.3 g/dL (12.0-16.0) 10/08/17 11:54 Hct 37.2 % (36.0-46.0) 10/08/17 11:54 MCV 87.3 fL (80.0-98.0) 10/08/17 11:54 MCH 28.9 pg (27.0-32.0) 10/08/17 11:54 MCHC 33.1 g/dL (31.0-37.0) 10/08/17 11:54 RDW Std Deviation 47.0 fl (28.0-62.0) 10/08/17 11:54 RDW Coeff of Keron 15 % (11.0-15.0) 10/08/17 11:54 Plt Count 144 K/uL (150-400) L 10/08/17 11:54 MPV 11.20 fL (7.40-12.00) 10/08/17 11:54 Nucleated RBC % 0.0 /100WBC 10/08/17 11:54 Nucleated RBCs # 0 K/uL 10/08/17 11:54 Blood Type O POSITIVE 10/08/17 11:54 Antibody Screen NEGATIVE 10/08/17 11:54 - Allergies Allergies/Adverse Reactions: Allergies Allergy/AdvReac Type Severity Reaction Status Date / Time No Known Allergies Allergy Verified 10/08/17 11:22 - Blood Blood Available: No Product(s) Available: None - Acknowledgements Anesthesia Type Planned: Epidural Pt an Appropriate Candidate for the Planned Anesthesia: Yes Alternatives and Risks of Anesthesia Discussed w Pt/Guardian: Yes Pt/Guardian Understands and Agrees with Anesthesia Plan: Yes Additional Comments: present for placement, interview and exam. 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 History: x3 Neurological History: Reports: Seizure - Infectious Disease History Infectious Disease History: Reports: Chicken Pox - Past Surgical History Other Neurological Surgeries/Procedures: hx seizures, controlled with medications - HOME MEDS Home Medications: Home Meds carBAMazepine [Carbamazepine] 500 mg PO DAILY 08/11/16 [History] - CURRENT (IN HOUSE) MEDS Current Meds: Current Medications Carboprost Tromethamine (Hemabate Ds) 250 mcg IM ASDIRECTED PRN PRN Reason: Post Hemorrhage Lactated Ringer's (Ringers, Lactated) 1,000 mls @ 150 mls/hr IV ASDIRECTED NANCY Last Admin: 10/09/17 00:45 Dose: 150 mls/hr Oxytocin/Sodium Chloride (Oxytocin 30 Unit/500 Ml-Ns) 30 unit in 500 mls @ 999 mls/hr IV TITRATE [facility] Tranexamic Acid 1,000 mg/ (Sodium Chloride) 110 mls @ 660 mls/hr IV ONETIME PRN PRN Reason: Bleeding Ampicillin Sodium 1 gm/ Sodium (Chloride) 50 mls @ 100 mls/hr IV Q4H [facility] Last Admin: 10/08/17 21:30 Dose: 100 mls/hr Oxytocin/Sodium Chloride (Oxytocin 30 Unit/500 Ml-Ns) 30 unit in 500 mls @ 2 mls/hr IV TITRATE [facility]; Protocol Last Titration: 10/09/17 00:55 Dose: 10 munits/min, 10 mls/hr Lidocaine HCl (Xylocaine 1%) 50 ml INJECT .ONCE PRN PRN Reason: Laceration repair Methylergonovine Maleate (Methergine) 0.2 mg IM ASDIRECTED PRN PRN Reason: Post Hemorrhage Misoprostol (Cytotec) 200 mcg PO .ONCE PRN PRN Reason: Post Hemorrhage Nalbuphine HCl (Nubain) 10 mg IVPUSH Q1H PRN PRN Reason: Pain (severe 7-10) Carbamazepin 100mg (Er Capsules) 3 each PO 1800 NANCY Last Admin: 10/08/17 17:56 Dose: 3 each Carbamazepin 100mg (Er Capsules) 2 each PO DAILY [facility] Last Admin: 10/08/17 17:56 Dose: 2 each Sodium Chloride (Saline Flush) 10 ml FLUSH ASDIRECTED PRN PRN Reason: Keep Vein Open Sodium Chloride (Saline Flush) 2.5 ml FLUSH ASDIRECTED PRN PRN Reason: Keep Vein Open Sterile Water (Sterile Water For Irrigation) 1,000 ml IRR ASDIRECTED PRN PRN Reason: delivery Discontinued Medications Fentanyl (Sublimaze) Confirm Administered Dose 100 mcg .ROUTE .STK-MED ONE Stop: 10/09/17 00:16 Ampicillin Sodium 2 gm/ Sodium (Chloride) 100 mls @ 200 mls/hr IV ONETIME ONE Stop: 10/08/17 12:09 Last Admin: 10/08/17 12:14 Dose: 200 mls/hr Fentanyl/Bupivacaine HCl ([id number] 2 Mcg/Ml-0.125%) Confirm Administered Dose 100 mls @ as directed EP .STK-MED ONE Stop: 10/09/17 00:17 Misoprostol (Cytotec) 25 mcg PO ONETIME ONE Stop: 10/08/17 16:38 Last Admin: 10/08/17 16:58 Dose: 25 mcg Misoprostol (Cytotec) 25 mcg VAG ONETIME ONE Stop: 10/08/17 16:41 Last Admin: 10/08/17 16:58 Dose: 25 mcg Carbamazepin 100mg (Er Capsules) 2 each PO DAILY [facility]
[2017-10-09] MEDS: Ampicillin 1 GM in Sodium Chloride 0.9% 50 ML IV SCH ×6 (01:20→21:27)
--- NOTE | 2017-10-09 10:48 | PCM.SN ---
- Free Text/Narrative Note: Bag empty for continous and bolus anesthetic admin for tolerance of labor. Patient insistant on decreasing her dosage; that was done. Bag was replaced with another 100 ml. RN discussion held. Stable vitals with slow progress of labor. [id number].
[2017-10-09] MEDS: CARBAMAZEPINE 100 MG PO SCH ×2 (14:02)
[2017-10-09] MEDS ORDERED: Misoprostol 50 MCG (1/2 of 100 MCG) Tab PO ONE (14:26)
--- NOTE | 2017-10-09 21:41 | PCM.SN ---
- Free Text/Narrative Note: I was informed that the epidural infusion had been turned off at the obstetirician order this afternoon. Further consultative care will occur only after further examination/care by surgeon.
[2017-10-09] MEDS ORDERED: Lactated Ringers 1,000 ML IV SCH (23:45)
[2017-10-09] MEDS ORDERED: Citric Acid/Sodium Citrate Solution 30 ML Cup PO SCH (23:45)
[2017-10-09] MEDS ORDERED: Propofol 200 MG/20 ML SDV ONE (23:45)
[2017-10-09] MEDS ORDERED: Oxytocin/0.9 % Sodium Chloride 30 UNIT/500 ML BAG IV SCH (23:45)
[2017-10-09] MEDS ORDERED: Sodium Chloride 0.9% 10 ML Syringe FLUSH PRN (23:51)
[2017-10-09] MEDS ORDERED: Sodium Chloride 0.9% 2.5 ML Syringe FLUSH PRN (23:51)
[2017-10-09] MEDS ORDERED: Bupivacaine 0.5% 10 ML SDV ONE (23:56)
[2017-10-10] MEDS ORDERED: Octyl 2-Cyanoacrylate 1 Tube ONE (00:06)
[2017-10-10] MEDS ORDERED: ePHEDrine 50 MG/ML SDV ONE (00:22)
[2017-10-10] MEDS ORDERED: Morphine PF 1 MG/ML Amp ONE (00:39)
[2017-10-10] MEDS ORDERED: Ondansetron 4 MG/2 ML SDV IV PRN (00:51)
[2017-10-10] MEDS ORDERED: diphenhydrAMINE 50 MG/ML SDV IVPUSH PRN (00:51)
[2017-10-10] MEDS ORDERED: Bisacodyl 10 MG Supp RECTAL PRN (00:51)
[2017-10-10] MEDS ORDERED: Lanolin 100% Cream 7 GM Tube TOP PRN (00:51)
[2017-10-10] MEDS ORDERED: Acetaminophen/oxyCODONE 325-5 MG Tab PO PRN (00:51)
--- NOTE | 2017-10-10 00:54 | PCM.OPNOTE ---
- General Post-Op/Procedure Note Date of Surgery/Procedure: 10/10/17 Operative Procedure(s): Primary C/Section Pre Op Diagnosis: IUP SROM failair to progress Post-Op Diagnosis: Same Anesthesia Technique: Epidural Primary Surgeon: Randall Fajardo EBL in mLs: 700 Complications: None Condition: Good
[2017-10-10] MEDS ORDERED: Lactated Ringers 1,000 ML IV SCH (01:00)
[2017-10-10] MEDS ORDERED: Naloxone 0.4 MG/ML Syringe IVPUSH ONE (01:09)
--- NOTE | 2017-10-10 01:14 | PCM.POSTAN ---
POST ANESTHESIA ASSESSMENT - MENTAL STATUS Mental Status: Alert, Oriented - VITAL SIGNS Pulse Rate: 88 SaO2: 100 Resp Rate: 18 Blood Pressure: 99/57 - RESPIRATORY Respiratory Status: Respiratory Rate WNL, Airway Patent, O2 Saturation Stable - CARDIOVASCULAR CV Status: Pulse Rate WNL, Blood Pressure Stable - GASTROINTESTINAL GI Status: No Symptoms - POST OP HYDRATION Hydration Status: Adequate & Stable
[2017-10-10] MEDS: Ketorolac 30 MG/ML SDV IVPUSH SCH ×3 (01:18→13:08)
--- NOTE | 2017-10-10 01:43 | OR ---
SURGEON: Randall Fajardo MD DATE OF PROCEDURE: PREOPERATIVE DIAGNOSES: Intrauterine 39+ weeks, spontaneous rupture of the membrane, failed induction. POSTOPERATIVE DIAGNOSES: Intrauterine 39+ weeks, spontaneous rupture of the membrane, failed induction. OPERATION PERFORMED: Primary low transverse section. BURNT LIME DRAWER: OR techarturo. ANESTHESIA: Epidural, Dr. Yang. ESTIMATED BLOOD LOSS: 700 mL. COMPLICATIONS: None. GARBAGE PICK UP MAN: Dr. Chilel. INDICATIONS FOR SURGERY: This patient is 42. She is para 3-0-0-3, all of them by spontaneous vaginal delivery. She had spontaneous rupture of the membrane that was confirmed. She is admitted. She was started on Cytotec and Pitocin and in spite of adequate stimulation and adequate time, the patient did not progress beyond 4 cm, and we could not get her in a good pattern and after laboring for in excess of 36 hours, a decision was made to do a primary low transverse section. PROCEDURE IN DETAIL: The patient was brought to the OR, properly identified. After adequate level of epidural anesthesia, with a Tamayo catheter in the bladder, the patient was prepped and draped in sterile fashion as usual. Low transverse Pfannenstiel skin incision was done. Dejuan's fascia and rectus fascia opened in the direction of the incision. The 2 recti muscles were and peritoneal cavity was entered. The lower uterine segment was identified and low transverse uterine incision was done and extended manually with the hand. Fetus was in the vertex position, delivered without any problem, handed to the auto wash buffer, Dr. Chilel. Later on, the score reported 8 and 9. The placenta delivered spontaneous complete and intact and repair of the lower uterine segment was done with 2-0 Vicryl continuous interlocking in 2 layers, reperitonealization done with 3-0 Vicryl continuous, and the peritoneal cavity evacuated completely from all blood and blood clot and closed with 3-0 Vicryl continuous. The rectus fascia was closed with #1 PDS double strand continuous, Dejuan's fascia with 3-0 Vicryl continuous, skin closed with skin clips, Insorb, and Dermabond. Instrument and sponge count was correct. The patient tolerated the procedure well and went to recovery room in stable general condition. SAMPSON / FAVIO /[id number]
[2017-10-10] MEDS: CARBAMAZEPINE 100 MG PO SCH ×3 (07:40→18:06)
[2017-10-10] MEDS: Ampicillin 1 GM in Sodium Chloride 0.9% 50 ML IV SCH ×5 (07:40→20:00)
--- NOTE | 2017-10-10 08:57 | PCM48HPAN ---
Post Anesthesia Note - EVALUATION WITHIN 48HRS OF ANESTHETIC Vital Signs in Normal Range: Yes Patient Participated in Evaluation: Yes Respiratory Function Stable: Yes Airway Patent: Yes Cardiovascular Function Stable: Yes Hydration Status Stable: Yes Pain Control Satisfactory: Yes Nausea and Vomiting Control Satisfactory: Yes Mental Status Recovered: Yes Pulse Rate: 88 Resp Rate: 15 Blood Pressure: 99/57 - COMMENTS/OBSERVATIONS Free Text/Narrative:: Doing very well with baby at side. No complaints.
[2017-10-10] MEDS: Docusate Sodium 100 MG Cap PO SCH ×2 (09:15→20:27)
[2017-10-10] MEDS ORDERED: Propofol 200 MG/20 ML SDV ONE (10:42)
--- NOTE | 2017-10-10 12:33 | PCM.PNPP ---
- General Info Date of Service: 10/10/17 Functional Status: Reports: Pain Controlled - Review of Systems General: Reports: No Symptoms HEENT: Reports: No Symptoms Pulmonary: Reports: No Symptoms Cardiovascular: Reports: No Symptoms Gastrointestinal: Reports: No Symptoms Genitourinary: Reports: No Symptoms Musculoskeletal: Reports: No Symptoms Skin: Reports: No Symptoms Neurological: Reports: No Symptoms Psychiatric: Reports: No Symptoms - General Info Date of Service: 10/10/17 - Patient Data Vital Signs - Most Recent: Last Vital Signs Temp 36.8 C 10/10/17 08:00 Pulse 84 10/10/17 09:00 Resp 14 10/10/17 09:00 BP 99/57 L 10/10/17 08:57 Pulse Ox 96 10/10/17 09:00 Weight - Most Recent: 90.718 kg I&O - Last 24 Hours: Intake & Output 10/09/17 10/10/17 10/10/17 22:59 06:59 14:59 Intake Total 2300 Output Total 1050 Balance 1250 Med Orders - Current: Current Medications Bisacodyl (Dulcolax) 10 mg RECTAL .ONCE PRN PRN Reason: Constipation Carboprost Tromethamine (Hemabate Ds) 250 mcg IM ASDIRECTED PRN PRN Reason: Post Hemorrhage Citric Acid/Sodium Citrate (Bicitra Solution) 30 ml PO .ONCE [facility] Last Admin: 10/10/17 00:02 Dose: 30 ml Diphenhydramine HCl (Benadryl) 25 mg IVPUSH Q6H PRN PRN Reason: Itching or Nausea Docusate Sodium (Colace) 100 mg PO BID [facility] Last Admin: 10/10/17 09:15 Dose: 100 mg Emollient Ointment (Lansinoh Hpa) 0 gm TOP ASDIRECTED PRN PRN Reason: Sore Nipples Lactated Ringer's (Ringers, Lactated) 1,000 mls @ 150 mls/hr IV ASDIRECTED [facility] Last Admin: 10/09/17 00:45 Dose: 150 mls/hr Oxytocin/Sodium Chloride (Oxytocin 30 Unit/500 Ml-Ns) 30 unit in 500 mls @ 999 mls/hr IV TITRATE [facility] Tranexamic Acid 1,000 mg/ (Sodium Chloride) 110 mls @ 660 mls/hr IV ONETIME PRN PRN Reason: Bleeding Ampicillin Sodium 1 gm/ Sodium (Chloride) 50 mls @ 100 mls/hr IV Q4H [facility] Last Admin: 10/10/17 12:13 Dose: Not Given Oxytocin/Sodium Chloride (Oxytocin 30 Unit/500 Ml-Ns) 30 unit in 500 mls @ 2 mls/hr IV TITRATE [facility]; Protocol Last Titration: 10/09/17 23:14 Dose: 0 munits/min, 0 mls/hr Oxytocin/Sodium Chloride (Oxytocin 30 Unit/500 Ml-Ns) 30 unit in 500 mls @ 250 mls/hr IV TITRATE [facility] Lactated Ringer's (Ringers, Lactated) 1,000 mls @ 500 mls/hr IV .BOLUS [facility] Lactated Ringer's (Ringers, Lactated) 1,000 mls @ 125 mls/hr IV ASDIRECTED [facility] Last Admin: 10/10/17 01:53 Dose: 125 mls/hr Ibuprofen (Motrin) 800 mg PO Q8H PRN PRN Reason: mild pain or fever Ketorolac Tromethamine (Toradol) 30 mg IVPUSH Q6H [facility] Stop: 10/11/17 01:01 Last Admin: 10/10/17 06:58 Dose: 30 mg Lidocaine HCl (Xylocaine 1%) 50 ml INJECT .ONCE PRN PRN Reason: Laceration repair Methylergonovine Maleate (Methergine) 0.2 mg IM ASDIRECTED PRN PRN Reason: Post Hemorrhage Misoprostol (Cytotec) 200 mcg PO .ONCE PRN PRN Reason: Post Hemorrhage Nalbuphine HCl (Nubain) 10 mg IVPUSH Q1H PRN PRN Reason: Pain (severe 7-10) Carbamazepin 100mg (Er Capsules) 3 each PO 1800 [facility] Last Admin: 10/10/17 07:40 Dose: Not Given Carbamazepin 100mg (Er Capsules) 2 each PO DAILY [facility] Last Admin: 10/10/17 09:15 Dose: 2 each Ondansetron HCl (Zofran) 4 mg IV Q4H PRN PRN Reason: Nausea/Vomiting Oxycodone/Acetaminophen (Percocet 325-5 Mg) 1 tab PO Q4H PRN PRN Reason: Pain (moderate 4-6) Oxycodone/Acetaminophen (Percocet 325-5 Mg) 2 tab PO Q4H PRN PRN Reason: Pain (moderate 4-6) Sodium Chloride (Saline Flush) 10 ml FLUSH ASDIRECTED PRN PRN Reason: Keep Vein Open Sodium Chloride (Saline Flush) 2.5 ml FLUSH ASDIRECTED PRN PRN Reason: Keep Vein Open Sodium Chloride (Saline Flush) 10 ml FLUSH ASDIRECTED PRN PRN Reason: Keep Vein Open Sodium Chloride (Saline Flush) 2.5 ml FLUSH ASDIRECTED PRN PRN Reason: Keep Vein Open Sterile Water (Sterile Water For Irrigation) 1,000 ml IRR ASDIRECTED PRN PRN Reason: delivery Discontinued Medications Bupivacaine HCl (Sensorcaine-Mpf 0.5%) Confirm Administered Dose 20 ml .ROUTE .STK-MED ONE Stop: 10/09/17 23:57 Last Admin: 10/10/17 07:40 Dose: Not Given Ephedrine Sulfate (Ephedrine Sulfate) Confirm Administered Dose 50 mg .ROUTE .STK-MED ONE Stop: 10/10/17 00:23 Fentanyl (Sublimaze) Confirm Administered Dose 100 mcg .ROUTE .STK-MED ONE Stop: 10/09/17 00:16 Last Admin: 10/10/17 07:39 Dose: Not Given Fentanyl (Sublimaze) Confirm Administered Dose 100 mcg .ROUTE .STK-MED ONE Stop: 10/09/17 23:45 Ampicillin Sodium 2 gm/ Sodium (Chloride) 100 mls @ 200 mls/hr IV ONETIME ONE Stop: 10/08/17 12:09 Last Admin: 10/08/17 12:14 Dose: 200 mls/hr Fentanyl/Bupivacaine HCl (Ngcohpob-Mewxt-Up 2 Mcg/Ml-0.125%) Confirm Administered Dose 100 mls @ as directed EP .STK-MED ONE Stop: 10/09/17 00:17 Last Admin: 10/10/17 07:39 Dose: Not Given Fentanyl/Bupivacaine HCl (Zxssmgtn-Mpdtz-Uc 2 Mcg/Ml-0.125%) Confirm Administered Dose 100 mls @ as directed EP .STK-MED ONE Stop: 10/09/17 10:15 Last Admin: 10/10/17 07:39 Dose: Not Given Misoprostol (Cytotec) 25 mcg PO ONETIME ONE Stop: 10/08/17 16:38 Last Admin: 10/08/17 16:58 Dose: 25 mcg Misoprostol (Cytotec) 25 mcg VAG ONETIME ONE Stop: 10/08/17 16:41 Last Admin: 10/08/17 16:58 Dose: 25 mcg Misoprostol (Cytotec) 50 mcg PO ONETIME ONE Stop: 10/09/17 14:27 Last Admin: 10/09/17 15:24 Dose: 50 mcg Morphine Sulfate (Duramorph Pf) Confirm Administered Dose 1 mg .ROUTE .STK-MED ONE Stop: 10/10/17 00:40 Naloxone HCl (Narcan) 0.1 mg IVPUSH ONETIME ONE Stop: 10/10/17 01:10 Last Admin: 10/10/17 07:40 Dose: Not Given Carbamazepin 100mg (Er Capsules) 2 each PO DAILY [facility] Octyl Cyanoacrylate (Dermabond Advance) Confirm Administered Dose 1 applic .ROUTE .STK-MED ONE Stop: 10/10/17 00:07 Propofol (Diprivan 20 Ml) Confirm Administered Dose 400 mg .ROUTE .STK-MED ONE Stop: 10/09/17 23:46 Propofol (Diprivan 20 Ml) Confirm Administered Dose 400 mg .ROUTE .STK-MED ONE Stop: 10/10/17 10:43 - Interaction Disposition, : in Room with Family Interaction: Holding Infant Feeding: Attempted ; Nursed Fair/Poor Support Person: Significant Other - Recovery Exam Fundal Tone: Firm Fundal Level: At Umbilicus Fundal Placement: Midline Lochia Amount: Scant Lochia Color: Rubra/Red Perineum Description: Intact, Minimal Bruising/Swelling Episiotomy/Laceration: None Bladder Status: Indwelling Catheter in Place Urinary Elimination: Indwelling Catheter - Exam General: Alert, Oriented HEENT: Pupils Equal Neck: Supple Lungs: Clear to Auscultation, Normal Respiratory Effort Cardiovascular: Regular Rate, Regular Rhythm GI/Abdominal Exam: Normal Bowel Sounds, Soft, Non-Tender, No Organomegaly, No Distention, No Abnormal Bruit, No Mass, Pelvis Stable Extremities: Normal Inspection, Normal Range of Motion, Non-Tender, No Pedal Edema, Normal Capillary Refill Skin: Warm, Dry, Intact Wound/Incisions: Healing Well Neurological: No New Focal Deficit Psy/Mental Status: Alert, Normal Affect, Normal Mood - Problem List Review Problem List Initiated/Reviewed/Updated: Yes - My Orders Last 24 Hours: My Active Orders 10/09/17 23:45 Citric Acid/Sodium Citrate [Bicitra Solution] 30 ml PO .ONCE Lactated Ringers [Ringers, Lactated] 1,000 ml IV .BOLUS Oxytocin/0.9 % Sodium Chloride [Oxytocin 30 Unit/500 ML-NS] 30 unit in 500 ml IV TITRATE 10/09/17 23:51 Notify Provider Vital Signs [RC] PRN Vital Signs [RC] PER UNIT ROUTINE Sodium Chloride 0.9% [Saline Flush] 10 ml FLUSH ASDIRECTED PRN Sodium Chloride 0.9% [Saline Flush] 2.5 ml FLUSH ASDIRECTED PRN Peripheral IV Insertion Adult [OM.PC] Routine Schedule Procedure [COMM] Per Unit Routine 10/10/17 00:51 Patient Status [ADT] Routine Ambulate [RC] PER UNIT ROUTINE Communication Order [RC] PER UNIT ROUTINE Communication Order [RC] PER UNIT ROUTINE Communication Order [RC] Per Unit Routine RT Incentive Spirometry [RC] Q2HWA Acetaminophen/oxyCODONE [Percocet 325-5 MG] 1 tab PO Q4H PRN Acetaminophen/oxyCODONE [Percocet 325-5 MG] 2 tab PO Q4H PRN Bisacodyl [Dulcolax] 10 mg RECTAL .ONCE PRN Ibuprofen [Motrin] 800 mg PO Q8H PRN Lanolin [Lansinoh HPA] See Dose Instructions TOP ASDIRECTED PRN Ondansetron [Zofran] 4 mg IV Q4H PRN diphenhydrAMINE [Benadryl] 25 mg IVPUSH Q6H PRN Assess Lochia [WOMSER] Per Unit Routine Assess Uterine Involution [WOMSER] Per Unit Routine Breast Pump [WOMSER] Per Unit Routine Peripheral IV Discontinue [OM.PC] Routine Sequential Compression Device [OM.PC] Per Unit Routine 10/10/17 01:00 Ketorolac [Toradol] 30 mg IVPUSH Q6H Lactated Ringers [Ringers, Lactated] 1,000 ml IV ASDIRECTED 10/10/17 09:00 Docusate Sodium [Colace] 100 mg PO BID 10/10/17 Breakfast Regular Diet [DIET] 10/11/17 05:11 HEMOGLOBIN/HEMATOCRIT,HH [HEME] Timed - Assessment Assessment:: Doing well - Plan Plan:: Admit A: 42yo EDC 10/27/2017 37 2/7wks. O+, RI, GBS unknown. SROM clear. P: admit, pitocin prn, Amp for GBS unknown, anticipate . Dr Fajardo updated.
[2017-10-10] MEDS: Ibuprofen 800 MG Tab PO PRN (19:13)
[2017-10-10] MEDS: Acetaminophen/oxyCODONE 325-5 MG Tab PO PRN (20:28)
[2017-10-11] MEDS: Acetaminophen/oxyCODONE 325-5 MG Tab PO PRN ×3 (01:31→16:11)
[2017-10-11 07:42] VITALS: BP 115/78
--- NOTE | 2017-10-11 08:31 | PCM.DCSUM1 ---
Discharge Summary - Hospital Course Free Text/Narrative:: Discharge home with infant. Follow up in 10 days and 6 weeks for post or sooner if needed. - Discharge Data Discharge Date: 10/11/17 Discharge Disposition: Home, Self-Care 01 Condition: Good - Discharge Diagnosis/Problem(s) (1) Supervision of normal IUP (intrauterine ) in multigravida SNOMED Code(s): 079013625, 831308848, 156249260 ICD Code: Z34.80 - ENCOUNTER FOR SUPRVSN OF NORMAL , UNSP TRIMESTER Status: Acute Priority: High Current Visit: Yes Qualifiers: Trimester: third trimester Qualified Code(s): Z34.83 - Encounter for supervision of other normal , third trimester (2) AMA (advanced maternal age) multigravida 35+ SNOMED Code(s): 429152707 ICD Code: O09.529 - SUPERVISION OF ELDERLY MULTIGRAVIDA, UNSPECIFIED TRIMESTER Status: Acute Priority: High Current Visit: Yes Qualifiers: Trimester: third trimester Qualified Code(s): O09.523 - Supervision of elderly multigravida, third trimester (3) delivery delivered SNOMED Code(s): 411799805 ICD Code: O82 - ENCOUNTER FOR DELIVERY WITHOUT INDICATION Status: Acute Priority: High Current Visit: Yes - Patient Summary/Data Operative Procedure(s) Performed: Primary C/Section - Patient Instructions Diet: Usual Diet as Tolerated Activity: As Tolerated, No Strenuous Activities, Rest and Relax Today Driving: May Drive Today Showering/Bathing: May Shower Wound/Incision Care: Keep Operative Site/Wound Site Clean and Dry Notify Provider of: Fever, Increased Pain, Swelling and Redness, Drainage, Nausea and/or Vomiting Other/Special Instructions: Discharge home with infant. Follow up in 10 days and 6 weeks for post or sooner if needed. - Discharge Plan Home Medications: Home Meds carBAMazepine [Carbamazepine] 500 mg PO DAILY 08/11/16 [History] - General Info Date of Service: 10/11/17 Admission Dx/Problem (Free Text: Patient Status Order with Admit Dx/Problem 10/08/17 11:40 Patient Status [ADT] Routine Admission Diagnosis/Problem Admission Diagnosis/Problem 10/08/17 12:42 42yo EDC 10/27/2017 37 2/7wks. O+, RI, GBS unknown. SROM clear. Functional Status: Reports: Pain Controlled, Tolerating Diet, Ambulating, Urinating - Review of Systems General: Reports: No Symptoms HEENT: Reports: No Symptoms Pulmonary: Reports: No Symptoms Cardiovascular: Reports: No Symptoms Gastrointestinal: Reports: No Symptoms Genitourinary: Reports: No Symptoms Musculoskeletal: Reports: No Symptoms Skin: Reports: No Symptoms Neurological: Reports: No Symptoms Psychiatric: Reports: No Symptoms - Patient Data Vitals - Most Recent: Last Vital Signs Temp 36.5 C 10/11/17 07:41 Pulse 80 10/11/17 07:41 Resp 18 10/11/17 07:41 BP 115/78 10/11/17 07:41 Pulse Ox 96 10/11/17 07:41 Weight - Most Recent: 90.718 kg Lab Results - Last 24 hrs: Laboratory Results - last 24 hr 10/11/17 Range/Units 04:45 Hgb 11.2 L (12.0-16.0) g/dL Hct 33.8 L (36.0-46.0) % Med Orders - Current: Current Medications Bisacodyl (Dulcolax) 10 mg RECTAL .ONCE PRN PRN Reason: Constipation Carboprost Tromethamine (Hemabate Ds) 250 mcg IM ASDIRECTED PRN PRN Reason: Post Hemorrhage Citric Acid/Sodium Citrate (Bicitra Solution) 30 ml PO .ONCE [facility] Last Admin: 10/10/17 00:02 Dose: 30 ml Diphenhydramine HCl (Benadryl) 25 mg IVPUSH Q6H PRN PRN Reason: Itching or Nausea Docusate Sodium (Colace) 100 mg PO BID [facility] Last Admin: 10/10/17 20:27 Dose: 100 mg Emollient Ointment (Lansinoh Hpa) 0 gm TOP ASDIRECTED PRN PRN Reason: Sore Nipples Lactated Ringer's (Ringers, Lactated) 1,000 mls @ 150 mls/hr IV ASDIRECTED [facility] Last Admin: 10/09/17 00:45 Dose: 150 mls/hr Oxytocin/Sodium Chloride (Oxytocin 30 Unit/500 Ml-Ns) 30 unit in 500 mls @ 999 mls/hr IV TITRATE [facility] Tranexamic Acid 1,000 mg/ (Sodium Chloride) 110 mls @ 660 mls/hr IV ONETIME PRN PRN Reason: Bleeding Ampicillin Sodium 1 gm/ Sodium (Chloride) 50 mls @ 100 mls/hr IV Q4H [facility] Last Admin: 10/10/17 20:00 Dose: Not Given Oxytocin/Sodium Chloride (Oxytocin 30 Unit/500 Ml-Ns) 30 unit in 500 mls @ 2 mls/hr IV TITRATE [facility]; Protocol Last Titration: 10/09/17 23:14 Dose: 0 munits/min, 0 mls/hr Oxytocin/Sodium Chloride (Oxytocin 30 Unit/500 Ml-Ns) 30 unit in 500 mls @ 250 mls/hr IV TITRATE [facility] Lactated Ringer's (Ringers, Lactated) 1,000 mls @ 500 mls/hr IV .BOLUS [facility] Lactated Ringer's (Ringers, Lactated) 1,000 mls @ 125 mls/hr IV ASDIRECTED [facility] Last Admin: 10/10/17 01:53 Dose: 125 mls/hr Ibuprofen (Motrin) 800 mg PO Q8H PRN PRN Reason: mild pain or fever Last Admin: 10/10/17 19:13 Dose: 800 mg Lidocaine HCl (Xylocaine 1%) 50 ml INJECT .ONCE PRN PRN Reason: Laceration repair Methylergonovine Maleate (Methergine) 0.2 mg IM ASDIRECTED PRN PRN Reason: Post Hemorrhage Misoprostol (Cytotec) 200 mcg PO .ONCE PRN PRN Reason: Post Hemorrhage Nalbuphine HCl (Nubain) 10 mg IVPUSH Q1H PRN PRN Reason: Pain (severe 7-10) Carbamazepin 100mg (Er Capsules) 3 each PO 1800 [facility] Last Admin: 10/10/17 18:06 Dose: Not Given Carbamazepin 100mg (Er Capsules) 2 each PO DAILY [facility] Last Admin: 10/10/17 09:15 Dose: 2 each Ondansetron HCl (Zofran) 4 mg IV Q4H PRN PRN Reason: Nausea/Vomiting Oxycodone/Acetaminophen (Percocet 325-5 Mg) 1 tab PO Q4H PRN PRN Reason: Pain (moderate 4-6) Oxycodone/Acetaminophen (Percocet 325-5 Mg) 2 tab PO Q4H PRN PRN Reason: Pain (moderate 4-6) Last Admin: 10/11/17 07:39 Dose: 2 tab Sodium Chloride (Saline Flush) 10 ml FLUSH ASDIRECTED PRN PRN Reason: Keep Vein Open Sodium Chloride (Saline Flush) 2.5 ml FLUSH ASDIRECTED PRN PRN Reason: Keep Vein Open Sodium Chloride (Saline Flush) 10 ml FLUSH ASDIRECTED PRN PRN Reason: Keep Vein Open Sodium Chloride (Saline Flush) 2.5 ml FLUSH ASDIRECTED PRN PRN Reason: Keep Vein Open Sterile Water (Sterile Water For Irrigation) 1,000 ml IRR ASDIRECTED PRN PRN Reason: delivery Discontinued Medications Bupivacaine HCl (Sensorcaine-Mpf 0.5%) Confirm Administered Dose 20 ml .ROUTE .STK-MED ONE Stop: 10/09/17 23:57 Last Admin: 10/10/17 07:40 Dose: Not Given Ephedrine Sulfate (Ephedrine Sulfate) Confirm Administered Dose 50 mg .ROUTE .STK-MED ONE Stop: 10/10/17 00:23 Fentanyl (Sublimaze) Confirm Administered Dose 100 mcg .ROUTE .STK-MED ONE Stop: 10/09/17 00:16 Last Admin: 10/10/17 07:39 Dose: Not Given Fentanyl (Sublimaze) Confirm Administered Dose 100 mcg .ROUTE .STK-MED ONE Stop: 10/09/17 23:45 Ampicillin Sodium 2 gm/ Sodium (Chloride) 100 mls @ 200 mls/hr IV ONETIME ONE Stop: 10/08/17 12:09 Last Admin: 10/08/17 12:14 Dose: 200 mls/hr Fentanyl/Bupivacaine HCl (Wjkylloh-Tcbkv-Qv 2 Mcg/Ml-0.125%) Confirm Administered Dose 100 mls @ as directed EP .STK-MED ONE Stop: 10/09/17 00:17 Last Admin: 10/10/17 07:39 Dose: Not Given Fentanyl/Bupivacaine HCl (Rufxmcca-Jwmng-Ud 2 Mcg/Ml-0.125%) Confirm Administered Dose 100 mls @ as directed EP .STK-MED ONE Stop: 10/09/17 10:15 Last Admin: 10/10/17 07:39 Dose: Not Given Ketorolac Tromethamine (Toradol) 30 mg IVPUSH Q6H [facility] Stop: 10/11/17 01:01 Last Admin: 10/10/17 13:08 Dose: 30 mg Misoprostol (Cytotec) 25 mcg PO ONETIME ONE Stop: 10/08/17 16:38 Last Admin: 10/08/17 16:58 Dose: 25 mcg Misoprostol (Cytotec) 25 mcg VAG ONETIME ONE Stop: 10/08/17 16:41 Last Admin: 10/08/17 16:58 Dose: 25 mcg Misoprostol (Cytotec) 50 mcg PO ONETIME ONE Stop: 10/09/17 14:27 Last Admin: 10/09/17 15:24 Dose: 50 mcg Morphine Sulfate (Duramorph Pf) Confirm Administered Dose 1 mg .ROUTE .STK-MED ONE Stop: 10/10/17 00:40 Naloxone HCl (Narcan) 0.1 mg IVPUSH ONETIME ONE Stop: 10/10/17 01:10 Last Admin: 10/10/17 07:40 Dose: Not Given Carbamazepin 100mg (Er Capsules) 2 each PO DAILY [facility] Octyl Cyanoacrylate (Dermabond Advance) Confirm Administered Dose 1 applic .ROUTE .STK-MED ONE Stop: 10/10/17 00:07 Propofol (Diprivan 20 Ml) Confirm Administered Dose 400 mg .ROUTE .STK-MED ONE Stop: 10/09/17 23:46 Propofol (Diprivan 20 Ml) Confirm Administered Dose 400 mg .ROUTE .STK-MED ONE Stop: 10/10/17 10:43 - Exam General: Reports: Alert, Oriented, Cooperative, No Acute Distress Lungs: Reports: Clear to Auscultation, Normal Respiratory Effort Cardiovascular: Reports: Regular Rate, Regular Rhythm, No Murmurs GI/Abdominal Exam: Normal Bowel Sounds, Soft, Non-Tender, No Organomegaly, No Distention, No Abnormal Bruit, No Mass, Pelvis Stable (Female) Exam: Vaginal Bleeding Rectal (Female) Exam: Deferred Back Exam: Reports: Normal Inspection, Full Range of Motion Extremities: Normal Inspection, Normal Range of Motion, Non-Tender, No Pedal Edema, Normal Capillary Refill Skin: Reports: Warm, Dry, Intact Wound/Incisions: Reports: Healing Well Neurological: Reports: No New Focal Deficit, Normal Gait, Normal Speech, Normal Tone Psy/Mental Status: Reports: Alert, Normal Affect, Normal Mood
[2017-10-11] MEDS: Docusate Sodium 100 MG Cap PO SCH (08:41)
[2017-10-11] MEDS: CARBAMAZEPINE 100 MG PO SCH (10:35)
[2017-10-11] MEDS: Ibuprofen 800 MG Tab PO PRN (12:27)
== END 2017-10-11 18:10 | disposition home or self-care (01) | DRG 766 ==
LOC: MW.OBCHECK 11:02 → MW.OB 11:09 → MW.OBCHECK 11:33 → MW.OB 11:34 → OBSVTOIN 10-10 00:30 → MW.OB 10-10 02:34
PROVIDERS: ADMIT Obstetrics & Gynecology; ATTEND Advanced Practice Midwife
PROC: 10D00Z1 Extraction of Products of Conception, Low, Open Approach (ICD-10-PCS; principal; 2017-10-10)
PROC: 3E0P7VZ Introduction of Hormone into Female Reproductive, Via Natural or Artificial Opening (ICD-10-PCS; 2017-10-10)
PROC: 3E033VJ Introduction of Other Hormone into Peripheral Vein, Percutaneous Approach (ICD-10-PCS; 2017-10-10)
DX: O42.02 Full-term premature rupture of membranes, onset of labor within 24 hours of rupture (principal); O61.0 Failed medical induction of labor; Z3A.39 39 weeks gestation of pregnancy; Z37.0 Single live birth
CPT/HCPCS: 36415; 51702; 59025; 85014; 85018; 85027; 86850; 86900; 86901; A9270-GY; J0290; J1885; J2274; J2590; J2704; J3010; J7030; J7050; J7120

== ENCOUNTER 2018-08-15 09:10 | Emergency (ER) | payer BC ==
--- NOTE | 2018-08-15 09:21 | EDM.PDOC ---
ED HPI GENERAL MEDICAL PROBLEM - General Chief Complaint: Upper Extremity Injury/Pain Stated Complaint: RIGHT WRIST PAIN Time Seen by Provider: 08/15/18 09:15 - History of Present Illness INITIAL COMMENTS - FREE TEXT/NARRATIVE: HISTORY AND PHYSICAL: History of present illness: Patient's 43-year-old female who presents with concern of acute right wrist injury that occurred yesterday when she struck it on a door she denies other trauma concern Review of systems: As per history of present illness and below otherwise all systems reviewed and negative. Past medical history: As per history of present illness and as reviewed below otherwise noncontributory. Surgical history: As per history of present illness and as reviewed below otherwise noncontributory. Social history: No reported history of drug or alcohol abuse. Family history: As per history of present illness and as reviewed below otherwise noncontributory. Physical exam: HEENT: Atraumatic, normocephalic, pupils reactive, negative for conjunctival pallor or scleral icterus, mucous membranes moist, throat clear, neck supple, nontender, trachea midline. Lungs: Clear to auscultation, breath sounds equal bilaterally, chest nontender. Heart: S1S2, regular, negative for clicks, rubs, or JVD. Abdomen: Soft, nondistended, nontender. Negative for masses or hepatosplenomegaly. Negative for costovertebral tenderness. Pelvis: Stable nontender. Genitourinary: Deferred. Rectal: Deferred. Extremities: No gross deformity no point tenderness EMS neurovascular exam is unremarkable. Neuro: Awake, alert, oriented. Cranial nerves II through XII unremarkable. Cerebellum unremarkable. Motor and sensory unremarkable throughout. Exam nonfocal. Diagnostics: X-ray right wrist Therapeutics: None Impression: #1 right wrist injury (contusion) Definitive disposition and diagnosis as appropriate pending reevaluation and review of above. 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 Musculoskeletal History: Reports: None Neurological History: Reports: Seizure Psychiatric History: Reports: None Endocrine/Metabolic History: Reports: None Hematologic History: Reports: None Immunologic History: Reports: None Oncologic (Cancer) History: Reports: None - Infectious Disease History Infectious Disease History: Reports: Chicken Pox - Past Surgical History Head Surgeries/Procedures: Reports: None Other Neurological Surgeries/Procedures: hx seizures, controlled with medications Social & Family History - Family History Family Medical History: Noncontributory - Caffeine Use Caffeine Use: Reports: Coffee Review of Systems - Review of Systems Review Of Systems: ROS reveals no pertinent complaints other than HPI. ED EXAM, GENERAL - Physical Exam Exam: See Below (See dictation) Course - Orders/Labs/Meds Orders: Active Orders 24 hr Category Date Time Status Wrist Comp Min 3V Rt [CR] Stat Exams 08/15/18 09:12 Ordered Departure - Departure Time of Disposition: 09:20 Disposition: Home, Self-Care 01 Condition: Good Clinical Impression: Wrist injury, Contusion - Discharge Information Referrals: Lenka Westfall DO [Primary Care Provider] - Additional Instructions: The following information is given to patients seen in the emergency department who are being discharged to home. This information is to outline your options for follow-up care. We provide all patients seen in our emergency department with a follow-up referral. The need for follow-up, as well as the timing and circumstances, are variable depending upon the specifics of your emergency department visit. If you don't have a primary care physician on staff, we will provide you with a referral. We always advise you to contact your personal physician following an emergency department visit to inform them of the circumstance of the visit and for follow-up with them and/or the need for any referrals to a consulting specialist. The emergency department will also refer you to a specialist when appropriate. This referral assures that you have the opportunity for followup care with a specialist. All of these measure are taken in an effort to provide you with optimal care, which includes your followup. Under all circumstances we always encourage you to contact your private physician who remains a resource for coordinating your care. When calling for followup care, please make the office aware that this follow-up is from your recent emergency room visit. If for any reason you are refused follow-up, please contact the [facility] emergency department at and asked to speak to the emergency department charge nurse. Motrin/Tylenol as directed follow-up private medical doctor as needed as discussed return as needed as discussed - My Orders Last 24 Hours: My Active Orders 08/15/18 09:12 Wrist Comp Min 3V Rt [CR] Stat - Assessment/Plan Last 24 Hours: My Active Orders 08/15/18 09:12 Wrist Comp Min 3V Rt [CR] Stat
--- NOTE | 2018-08-15 09:45 | CR ---
EXAMINATION: Right wrist and right hand, second digit HISTORY: Pain COMPARISON: None TECHNIQUE: 3 views of the right wrist and 3 views of the right second digit FINDINGS: There is no acute osseous abnormality, dislocation, or fracture. Bone mineralization and joint spaces are preserved. Radiocarpal alignment is normal. No significant soft tissue swelling. No foreign body. IMPRESSION: 1. No acute osseous abnormality identified.
[2018-08-15 10:27] VITALS: BP 106/69
== END 2018-08-15 10:26 | disposition home or self-care (01) ==
LOC: MW.ED 09:10
DX: S60.211A Contusion of right wrist, initial encounter (principal); Z79.899 Other long term (current) drug therapy; W22.8XXA Striking against or struck by other objects, initial encounter
CPT/HCPCS: 73110-26-RT; 73110-RT; 73140-26-F6; 73140-F6; 99283-25